=== PATIENT | male | born 1985 | race Caucasian/White ===

== ENCOUNTER 2016-12-24 15:36 | Observation (INO) | payer SELFPAY ==
--- NOTE | 2016-12-24 16:20 | ER Document Report ---
ED General - General Chief Complaint: Abscess Stated Complaint: POSSIBLE ABSCESS Time Seen by Provider: 12/24/16 16:13 Mode of Arrival: Ambulatory Information source: Patient Notes: 31-year-old male presents with intermittent swelling tenderness in between his scrotum and his rectum. Patient notes symptoms occur intermittently over the past year. Patient denies any fevers or chills nausea vomiting or diarrhea. TRAVEL OUTSIDE OF THE [place] IN LAST 30 DAYS: No - HPI Onset: Other Onset/Duration: Intermittent Quality of pain: Achy Severity: Mild Pain Level: 1 Associated symptoms: None Exacerbated by: Denies Relieved by: Denies Similar symptoms previously: Yes Recently seen / treated by doctor: No - Related Data Allergies/Adverse Reactions: No Known Allergies Allergy (Verified 12/24/16 15:45) Past Medical History - Social History Smoking Status: Never Smoker Cigarette use (# per day): No Chew tobacco use (# tins/day): No Smoking Education Provided: No Family History: Reviewed & Not Pertinent Renal/ Medical History: Denies: Hx Peritoneal Dialysis - Immunizations Hx Diphtheria, Pertussis, Tetanus Vaccination: Yes Review of Systems - Review of Systems Notes: REVIEW OF SYSTEMS: CONSTITUTIONAL : Denies fever, chills, or sweats. Denies recent illness. EENT: Denies eye, ear, throat, or mouth pain or symptoms. Denies nasal or sinus congestion or discharge. Denies throat, tongue, or mouth swelling or difficulty swallowing. CARDIOVASCULAR: Denies chest pain. Denies palpitations or racing or irregular heart beat. Denies ankle edema. RESPIRATORY: Denies cough, cold, or chest congestion. Denies shortness of breath, difficulty breathing, or wheezing. GASTROINTESTINAL: Denies abdominal pain or distention. Denies nausea, vomiting , or diarrhea. Denies blood in vomitus, stools, or per rectum. Denies black, tarry stools. Denies constipation. GENITOURINARY: Denies difficulty urinating, painful urination, burning, frequency, blood in urine, or discharge. MUSCULOSKELETAL: Denies back or neck pain or stiffness. Denies joint pain or swelling. SKIN: Tenderness HEMATOLOGIC : Denies easy bruising or bleeding. LYMPHATIC: Denies swollen, enlarged glands. NEUROLOGICAL: Denies confusion or altered mental status. Denies passing out or loss of consciousness. Denies dizziness or lightheadedness. Denies headache. Denies weakness or paralysis or loss of use of either side. Denies problems with gait or speech. Denies sensory loss, numbness, or tingling. Denies seizures. PSYCHIATRIC: Denies anxiety or stress. Denies depression, suicidal ideation, or homicidal ideation. ALL OTHER SYSTEMS REVIEWED AND NEGATIVE. Dictation was performed using [employer] voice recognition software PHYSICAL EXAMINATION: GENERAL: Well-appearing, well-nourished and in no acute distress. HEAD: Atraumatic, normocephalic. EYES: Pupils equal round and reactive to light, extraocular movements intact, sclera anicteric, conjunctiva are normal. ENT: Nares patent, oropharynx clear without exudates. Moist mucous membranes. NECK: Normal range of motion, supple without lymphadenopathy LUNGS: Breath sounds clear to auscultation bilaterally and equal. No wheezes rales or rhonchi. HEART: Regular rate and rhythm without murmurs ABDOMEN: Soft, nontender, nondistended abdomen. No guarding, no rebound. No masses appreciated. Musculoskeletal: Normal range of motion, no pitting or edema. No cyanosis. NEUROLOGICAL: Cranial nerves grossly intact. Normal speech, normal gait. Normal sensory, motor exams PSYCH: Normal mood, normal affect. SKIN: mild tenderness between the rectum and scrotum Physical Exam - Vital signs Vitals: Temp Pulse Resp BP Pulse Ox 98.6 F 92 20 159/80 H 97 12/24/16 15:44 12/24/16 15:44 12/24/16 15:44 12/24/16 15:44 12/24/16 15:44 Course - Re-evaluation Re-evalutation: 12/24/16 17:09 perirectal abscess noted on ct, dr michelle rowland for consult - Vital Signs Vital signs: Temp Pulse Resp BP Pulse Ox 98.6 F 92 20 159/80 H 97 12/24/16 15:44 12/24/16 15:44 12/24/16 15:44 12/24/16 15:44 12/24/16 15:44 Discharge - Discharge Clinical Impression: Perianal abscess Condition: Stable Disposition: ADMITTED OBSERVATION Admitting Provider: Surgicalist Unit Admitted: Surgical Floor
--- NOTE | 2016-12-24 16:56 | RADIOLOGY REPORT (SQ) ---
EXAM DESCRIPTION: CT ABD/PELVIS WITH IV ONLY COMPLETED DATE/TIME: 12/24/2016 4:45 pm REASON FOR STUDY: perianal tendernesws COMPARISON: None. TECHNIQUE: CT scan of the abdomen and pelvis performed using helical scanning technique with dynamic intravenous contrast injection. No oral contrast. Images reviewed with lung, soft tissue, and bone windows. Reconstructed coronal and sagittal MPR images reviewed. Delayed images for evaluation of the urinary system also acquired. All images stored on PACS. All CT scanners at this facility use dose modulation, iterative reconstruction, and/or weight based d osing when appropriate to reduce radiation dose to as low as reasonably achievable (ALARA). [facility]: Dose Right [facility]: CareDose [facility]: Dose Right [facility]: Teradose 4D [facility]: [employer] CONTRAST TYPE AND DOSE: contrast/concentration: Isovue 370.00 mg/ml; Total Contrast Delivered: 97.0 ml; Total Saline Delivered: 55.0 ml RENAL FUNCTION: None required. The patient is less than 50 years old. RADIATION DOSE: Up-to-date CT equipment and radiation dose reduction techniques were employed. CTDIv ol: NaN - NaN mGy. DLP: 0 mGy-cm.. LIMITATIONS: None. FINDINGS: LOWER CHEST: No significant findings. No nodules or infiltrates. LIVER: Normal size. No masses. No dilated ducts. SPLEEN: Normal size. No focal lesions. PANCREAS: No masses. No significant calcifications. No adjacent inflammation or peripancreatic fluid collections. Pancreatic duct not dilated. GALLBLADDER: No identified stones by CT criteria. No inflammatory changes to suggest cholecystitis. ADRENAL GLANDS: No significant masses or asymmetry. RIGHT KIDNEY AND URETER: No solid masses. No significant calcification. No hydronephrosis or hydroure ter. LEFT KIDNEY AND URETER: No solid masses. No significant calcification. No hydronephrosis or hydrouret er. AORTA AND VESSELS: No aneurysm. No dissection. Renal arteries, SMA, celiac without stenosis. RETROPERITONEUM: No retroperitoneal adenopathy, hemorrhage or masses. BOWEL AND PERITONEAL CAVITY: No masses or inflammatory changes. No free fluid or peritoneal masses. APPENDIX: Normal. PELVIS: No intrapelvic mass or fluid. Normal bladder. Close to the anterior anus tracking anteriorl y and to the right of midline is some low density in the perineum which measures up to 3.2 x 2.5 cm. Potential fistula or developing abscess. Please refer to mackenzie images. See image 97 specifically. ABDOMINAL WALL: No masses. No hernias. BONES: No significant or acute findings. OTHER: No other significant finding. IMPRESSION: 1. Low density in the perineum as above. This could represent a perianal abscess. Plea se see PACS mackenzie images as outlined above. TECHNICAL DOCUMENTATION: JOB ID: [id number] Quality ID # [id number]: Final reports with documentation of one or more dose reduction techniques (e.g., Au tomated exposure control, adjustment of the mA and/or kV according to patient size, use of iterative reconstruction technique) 2010 [employer]- All Rights Reserved
[2016-12-24 17:36] LABS: ABSOLUTE BASOPHILS # (AUTO) 0.1 10^3/uL (0.0-0.2); ABSOLUTE EOSINOPHILS # (AUTO) 0.2 10^3/uL (0.0-0.6); ABSOLUTE LYMPHOCYTES (AUTO) 2.6 10^3/uL (0.5-4.7); ABSOLUTE MONOCYTES (AUTO) 0.9 10^3/uL (0.1-1.4); ABSOLUTE NEUT (AUTO) 7.8 10^3/uL (1.7-8.2); BASOPHILS % (AUTO) 0.5 % (0-2); EOSINOPHILS % (AUTO) 1.9 % (0-6); HEMATOCRIT 42.2 % (37.9-51.0); HEMOGLOBIN 15.2 g/dL (13.5-17.0); HGB HCT DIFFERENCE 3.4; LYMPHOCYTES % (AUTO) 22.5 % (13-45); MEAN CORPUSCULAR HEMOGLOBIN 31.2 pg (27.0-33.4); MEAN CORPUSCULAR HGB CONC 35.9 g/dL (32.0-36.0); MEAN CORPUSCULAR VOLUME 87 fl (80-97); RED BLOOD COUNT 4.86 10^6/uL (4.35-5.55); RED CELL DISTRIBUTION WIDTH 12.7 % (11.5-14.0); SEGMENTED NEUTROPHILS % (AUTO) 67.1 % (42-78); WHITE BLOOD COUNT 11.7 10^3/uL (4.0-10.5)
[2016-12-24] MEDS ORDERED: CLINDAMYCIN PHOSPHATE INJ 300 MG/2 ML SDV IV ONE (17:45)
[2016-12-24 17:46] LABS: ALANINE AMINOTRANSFERASE 45 U/L (21-72); ALBUMIN 4.7 g/dL (3.5-5.0); ALKALINE PHOSPHATASE 76 U/L (38-126); ANION GAP 12 (5-19); ASPARTATE AMINO TRANSFERASE 29 U/L (17-59); BILIRUBIN,DIRECT 0.4 mg/dL (0.0-0.4); BILIRUBIN,TOTAL 0.5 mg/dL (0.2-1.3); BLOOD UREA NITROGEN 12 mg/dL (7-20); CALCIUM 9.4 mg/dL (8.4-10.2); CARBON DIOXIDE 26 mmol/L (22-30); CHLORIDE 103 mmol/L (98-107); CREATININE RESULT 0.98 mg/dL (0.52-1.25); GLUCOSE 86 mg/dL (75-110); POTASSIUM 3.8 mmol/L (3.6-5.0); SODIUM 141.3 mmol/L (137-145); TOTAL PROTEIN 7.3 g/dL (6.3-8.2)
[2016-12-24] MEDS ORDERED: MORPHINE SULFATE 10 MG/ML INJ IV ONE (17:49)
[2016-12-24] MEDS ORDERED: NORMAL SALINE 1000 ML 1,000 ML IV ONE (17:49)
[2016-12-24] MEDS ORDERED: ONDANSETRON HCL INJ/PF 4 MG/2 ML SDV IV PRN (17:54)
[2016-12-24] MEDS ORDERED: MORPHINE SULFATE 10 MG/ML INJ IV PRN (17:54)
[2016-12-24 18:14] LABS: VENOUS BLOOD HCO3 25.3 mmol/L (20-32); VENOUS BLOOD PCO2 43.1 mmHg (35-63); VENOUS BLOOD PH 7.39 (7.30-7.42)
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
[2016-12-24] MEDS: METRONIDAZOLE 500 MG/NS RTU 100 ML IV SCH (20:21)
[2016-12-24] MEDS: NORMAL SALINE 1000 ML 1,000 ML IV PRN (20:22)
[2016-12-24] MEDS: KETOROLAC TROMETHAMINE INJ/PF 30 MG/1 ML SDV IV PRN (22:09)
[2016-12-25] MEDS: METRONIDAZOLE 500 MG/NS RTU 100 ML IV SCH ×2 (02:42→09:46)
[2016-12-25] MEDS: NORMAL SALINE 1000 ML 1,000 ML IV PRN ×2 (06:54→11:40)
[2016-12-25] MEDS ORDERED: BUPIVACAINE HCL 0.25 % INJ/PF (2.5 MG/1 ML) 30 ML VIAL ONE (07:40)
[2016-12-25] MEDS ORDERED: FENTANYL CITRATE INJ/PF 100 MCG/2 ML AMPUL ONE (07:54)
[2016-12-25] MEDS ORDERED: KETOROLAC TROMETHAMINE 60 MG/2 ML SDV ONE (07:54)
[2016-12-25] MEDS ORDERED: PROPOFOL INJ 200 MG/20 ML VIAL IV ONE (07:55)
[2016-12-25] MEDS ORDERED: HYDROMORPHONE HCL INJ/PF 2 MG/ML AMPULE ONE (07:55)
[2016-12-25] MEDS ORDERED: MIDAZOLAM 2 MG/2 ML INJ ONE (07:55)
[2016-12-25] MEDS ORDERED: ONDANSETRON HCL INJ/PF 4 MG/2 ML SDV ONE (07:55)
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
[2016-12-25] MEDS ORDERED: DIPHENHYDRAMINE HCL 50 MG/ML VIAL IV PRN (09:00)
[2016-12-25] MEDS ORDERED: PROMETHAZINE HCL INJ 25 MG/1 ML VIAL IV PRN (09:00)
[2016-12-25] MEDS ORDERED: FENTANYL CITRATE INJ/PF 100 MCG/2 ML AMPUL IV PRN ×3 (09:00)
[2016-12-25] MEDS ORDERED: MEPERIDINE HCL/PF INJ 25 MG/1 ML DISP.SYRIN IV PRN (09:00)
[2016-12-25] MEDS ORDERED: SUCCINYLCHOLINE CHLORIDE INJ 200 MG/10 ML VIAL ONE (09:02)
[2016-12-25] MEDS ORDERED: DOCUSATE SODIUM 100 MG CAPSULE PO SCH (10:00)
[2016-12-25] MEDS: KETOROLAC TROMETHAMINE INJ/PF 30 MG/1 ML SDV IV PRN (11:43)
[2016-12-25 15:33] VITALS: BP 129/66
--- NOTE | 2016-12-27 08:07 | DISCHARGE SUMMARY E ---
Discharge Summary NAME: LOGAN TREVINO : 1985 AGE: 31Y ADMITTED: 12/24/2016 DISCHARGED: 12/25/2016 CHIEF COMPLAINT: Perineal abscess. SUMMARY OF HOSPITALIZATION: The patient is a 31-year-old white male who presents to the emergency department complaining of a several day history of periodic rectal bleeding and pain in his perineum. He was found on physical examination and confirmed by ultrasonography to have inflammatory changes just anterior to his anus. He was admitted to the surgicalist service, kept n.p.o. overnight, and taken to the operating room the following morning where he underwent exam under anesthesia, drainage of perineal abscess with tacking. Intraoperative findings were significant only for fluid-filled pocket in the perineum. Patient was discharged home the following day. FINAL DIAGNOSIS: Perineal abscess status post drainage. DISPOSITION: The patient will be discharged home to the care of his family, remove packing 24 hours, given a prescription of pain medication, Percocet, instruction to follow up with [facility] in approximately 1 week. DICTATING PHYSICIAN: KAITLYNN GAN M.D. [id number] PHY#: [id number] ID: [id number] JOB#: [id number] ACCT: [id number] cc:Jules MARCIAL MD, M.D. [facility],
== END 2016-12-25 15:10 | disposition home or self-care (01) ==
LOC: ER 15:36 → EH 17:50 → UNDOADMOB 17:50 → EH 17:53 → 4S 21:15
PROVIDERS: ATTEND Surgery
PROC: 0J9B0ZZ Drainage of Perineum Subcutaneous Tissue and Fascia, Open Approach (ICD-10-PCS; principal; 2016-12-25 08:00)
DX: L02.215 Cutaneous abscess of perineum (principal); K64.8 Other hemorrhoids; K64.4 Residual hemorrhoidal skin tags; K62.5 Hemorrhage of anus and rectum; F17.200 Nicotine dependence, unspecified, uncomplicated
CPT/HCPCS: 99285; 96375; 96365; 96368; 36415; 87040; 87070; 87205; 85025; 87075; 87077; 80053; 87186; 82803; 74177; 10060; G0378 ×3; J2250; J1885 ×3; J3010; J2270 ×2; J1170; J0330; J2405; J7030 ×2; J2704; 902

== ENCOUNTER 2017-01-26 11:22 | Observation (INO) | payer SELFPAY ==
[2017-01-26 13:01] LABS: ABSOLUTE EOSINOPHILS # (AUTO) 0.2 10^3/uL (0.0-0.6); ABSOLUTE LYMPHOCYTES (AUTO) 1.9 10^3/uL (0.5-4.7); ABSOLUTE NEUT (AUTO) 8.7 10^3/uL (1.7-8.2); BASOPHILS % (AUTO) 0.2 % (0-2); EOSINOPHILS % (AUTO) 1.8 % (0-6); HEMATOCRIT 40.4 % (37.9-51.0); HEMOGLOBIN 14.2 g/dL (13.5-17.0); HGB HCT DIFFERENCE 2.2; LYMPHOCYTES % (AUTO) 16.4 % (13-45); MEAN CORPUSCULAR HEMOGLOBIN 30.9 pg (27.0-33.4); MEAN CORPUSCULAR HGB CONC 35.2 g/dL (32.0-36.0); MEAN CORPUSCULAR VOLUME 88 fl (80-97); MONOCYTES % (AUTO) 8.6 % (3-13); RED BLOOD COUNT 4.61 10^6/uL (4.35-5.55); RED CELL DISTRIBUTION WIDTH 12.9 % (11.5-14.0); WHITE BLOOD COUNT 11.9 10^3/uL (4.0-10.5)
[2017-01-26] MEDS ORDERED: CLINDAMYCIN 300 MG/D5W RTU 300 MG/50 ML RTUPB IV ONE (13:30)
[2017-01-26] MEDS ORDERED: MORPHINE SULFATE 10 MG/ML INJ IV ONE (13:30)
[2017-01-26 13:35] LABS: ALANINE AMINOTRANSFERASE 29 U/L (21-72); ALBUMIN 3.9 g/dL (3.5-5.0); ALKALINE PHOSPHATASE 67 U/L (38-126); ANION GAP 6 (5-19); ASPARTATE AMINO TRANSFERASE 22 U/L (17-59); BILIRUBIN,DIRECT 0.3 mg/dL (0.0-0.4); BILIRUBIN,TOTAL 0.7 mg/dL (0.2-1.3); BLOOD UREA NITROGEN 11 mg/dL (7-20); CALCIUM 9.2 mg/dL (8.4-10.2); CARBON DIOXIDE 28 mmol/L (22-30); CHLORIDE 106 mmol/L (98-107); CREATININE RESULT 0.88 mg/dL (0.52-1.25); GLUCOSE 90 mg/dL (75-110); POTASSIUM 3.8 mmol/L (3.6-5.0); SODIUM 139.7 mmol/L (137-145); TOTAL PROTEIN 6.2 g/dL (6.3-8.2)
--- NOTE | 2017-01-26 14:03 | RADIOLOGY REPORT (SQ) ---
EXAM DESCRIPTION: CT PELVIS WITH COMPLETED DATE/TIME: 01/26/2017 1:50 pm REASON FOR STUDY: perineal abscess COMPARISON: 12/24/2016. TECHNIQUE: CT scan of the pelvis performed with intravenous contrast. Images reviewed with soft tis amairani and bone windows. Reconstructed coronal and sagittal MPR images reviewed. All images stored on PACS. All CT scanners at this facility use dose modulation, iterative reconstruction, and/or weight based d osing when appropriate to reduce radiation dose to as low as reasonably achievable (ALARA). [facility]: Dose Right [facility]: CareDose [facility]: Dose Right [facility]: Teradose 4D [facility]: [employer] CONTRAST DOSE: 95 mL Isovue 370. RENAL FUNCTION: None required. Patient less than 50 years old. RADIATION DOSE: mGy. LIMITATIONS: None. FINDINGS: PELVIC BONES: No acute fracture. No worrisome bone lesions. VISUALIZED SPINE: No acute findings. HIP(S): No acute fracture or dislocation. No worrisome bone lesions. PELVIC SOFT TISSUES: No significant findings. EXTRAPELVIC SOFT TISSUES: Ill-defined low-attenuation fluid collection in the perineal soft tissues a nterior and to the right of the anus. Series 4, image 46. Similar appearance but slightly smaller, currently measuring 1.9 x 2.2 cm with prior measurements of 2.5 x 3.2 cm. OTHER: No other significant finding. IMPRESSION: SMALL PERINEAL ABSCESS DESCRIBED WHICH IS SLIGHTLY SMALLER COMPARED TO THE PRIOR STUD Y. NO OTHER SIGNIFICANT FINDINGS. TECHNICAL DOCUMENTATION: JOB ID: [id number] Quality ID # [id number]: Final reports with documentation of one or more dose reduction techniques (e.g., Au tomated exposure control, adjustment of the mA and/or kV according to patient size, use of iterative reconstruction technique) 2010 [employer]- All Rights Reserved
--- NOTE | 2017-01-26 15:06 | PDOC H&P ---
History of Present Illness Patient complains of: Perineal pain History of Present Illness: LOGAN TREVINO is a 31 year old male with a perineal abscess that was incised and drained about a month ago. The process resolved but however in the last several days he has had recurrence of the perineal swelling with redness and pain. no fever. No drainage. Patient has no other medical problems. No diabetes. Past Medical History Cardiac Medical History: Reports: None Denies: Congestive Heart Failure, Myocardial Infarction, Hypertension Pulmonary Medical History: Reports: None Denies: Asthma, Bronchitis, Chronic Obstructive Pulmonary Disease (COPD), Pneumonia, Tuberculosis Neurological Medical History: Denies: Seizures Endocrine Medical History: Reports: None Renal/ Medical History: Denies: End Stage Renal Disease GI Medical History: Denies: Cirrhosis, Gastroesophageal Reflux Disease Musculoskeltal Medical History: Denies: Arthritis Psychiatric Medical History: Denies: Bipolar Disorder, Depression Hematology: Denies: Anemia, Bleeding Tendencies Past Surgical History Past Surgical History: Reports: Other - Perineal abscess incision and drainage about a month ago. Social History Smoking Status: Current Every Day Smoker Frequency of Alcohol Use: Rare Drugs: None Family History Family History: Reviewed & Not Pertinent Parental Family History Reviewed: No Children Family History Reviewed: No Sibling(s) Family History Reviewed.: No Medication/Allergy Home Medications: No Home Medications 01/26/17 Allergies/Adverse Reactions: No Known Allergies Allergy (Verified 01/26/17 11:26) Physical Exam Vital Signs: Temp Pulse Resp BP Pulse Ox 98.5 F 91 16 147/73 H 99 01/26/17 11:26 01/26/17 11:26 01/26/17 11:26 01/26/17 11:26 01/26/17 11:26 Intake & Output 01/25/17 01/26/17 01/27/17 06:59 06:59 06:59 Weight 88.2 kg General appearance: PRESENT: no acute distress, cooperative Eye exam: PRESENT: conjunctiva pink Neck exam: PRESENT: other - Supple with no masses Respiratory exam: PRESENT: clear to auscultation wilbert Cardiovascular exam: PRESENT: RRR GI/Abdominal exam: PRESENT: other - Soft nondistended nontender to palpate Rectal exam: PRESENT: other - At the perineal region several centimeters away from the perianal region there is a wide area of erythema with tenderness and induration. Due to the amount of induration I am unable to determine whether he has fluctuance in this area. No abnormality seen in the perianal region. Extremities exam: PRESENT: other - No swelling Skin exam: PRESENT: warm Results Laboratory Results: 01/26/17 12:38 01/26/17 12:38 01/26/17 01/26/17 12:38 12:38 WBC 11.9 H RBC 4.61 Hgb 14.2 Hct 40.4 MCV 88 MCH 30.9 MCHC 35.2 RDW 12.9 Plt Count 174 Seg Neutrophils % 73.0 Lymphocytes % 16.4 Monocytes % 8.6 Eosinophils % 1.8 Basophils % 0.2 Absolute Neutrophils 8.7 H Absolute Lymphocytes 1.9 Absolute Monocytes 1.0 Absolute Eosinophils 0.2 Absolute Basophils 0.0 Sodium 139.7 Potassium 3.8 Chloride 106 Carbon Dioxide 28 Anion Gap 6 BUN 11 Creatinine 0.88 Est GFR ( Amer) > 60 Est GFR (Non-Af Amer) > 60 Glucose 90 Calcium 9.2 Total Bilirubin 0.7 AST 22 ALT 29 Alkaline Phosphatase 67 Total Protein 6.2 L Albumin 3.9 Impressions: Pelvis CT 01/26/17 12:20 IMPRESSION: SMALL PERINEAL ABSCESS DESCRIBED WHICH IS SLIGHTLY SMALLER COMPARED TO THE PRIOR STUDY. NO OTHER SIGNIFICANT FINDINGS. Assessment & Plan - Diagnosis (1) Perineal abscess Is this a current diagnosis for this admission?: Yes Plan: Recurrent. CT scan demonstrates a abscess although I cannot feel a direct region of fluctuance. I will plan incision and drainage with a curetting of the abscess cavity. I have discussed with the patient the nature of the surgery and risks and benefits including risk of recurrence, bleeding, adjacent structure injury, prolonged wound healing and mistaken diagnosis as well. Patient understands and agrees to proceed.
--- NOTE | 2017-01-26 15:24 | ER Document Report ---
ED General - General Chief Complaint: Abscess Stated Complaint: GROIN PAIN Time Seen by Provider: 01/26/17 11:52 Mode of Arrival: Ambulatory Information source: Patient Notes: 31-year-old male who had a perineal abscess which was incised and drained approximately 1 month ago presents with complaints that symptoms have been worsening patient denies any fevers or chills denies any nausea vomiting that symptoms initially improved but then worsened and this tender area TRAVEL OUTSIDE OF THE [place] IN LAST 30 DAYS: No - HPI Onset: Other Onset/Duration: Persistent, Worse Quality of pain: Achy Severity: Mild Pain Level: 1 Associated symptoms: Other Exacerbated by: Denies Relieved by: Denies Similar symptoms previously: Yes Recently seen / treated by doctor: Yes - Related Data Allergies/Adverse Reactions: No Known Allergies Allergy (Verified 01/26/17 11:26) Home Medications: Current Home Medications No Home Medications 01/26/17 [History] Past Medical History - Social History Smoking Status: Current Every Day Smoker Cigarette use (# per day): Yes Chew tobacco use (# tins/day): No Smoking Education Provided: No Frequency of alcohol use: None Drug Abuse: None Family History: Reviewed & Not Pertinent - Past Medical History Cardiac Medical History: Reports: None Denies: Hx Congestive Heart Failure, Hx Heart Attack, Hx Hypertension Pulmonary Medical History: Reports: None Denies: Hx Asthma, Hx Bronchitis, Hx COPD, Hx Pneumonia, Hx Tuberculosis Neurological Medical History: Denies: Hx Seizures Endocrine Medical History: Reports: None Renal/ Medical History: Denies: Hx Benign Prostatic Hyperplasia, Hx End Stage Renal Disease, Hx Kidney Stones, Hx Peritoneal Dialysis GI Medical History: Denies: Hx Cirrhosis, Hx Gastroesophageal Reflux Disease, Hx Ulcer Musculoskeltal Medical History: Denies Hx Arthritis, Denies Hx Multiple Sclerosis Psychiatric Medical History: Denies: Hx Bipolar Disorder, Hx Depression, Hx Schizophrenia Surgical Hx: Negative Past Surgical History: Reports: Other - Perineal abscess incision and drainage about a month ago. - Immunizations Hx Diphtheria, Pertussis, Tetanus Vaccination: Yes Review of Systems - Review of Systems Notes: REVIEW OF SYSTEMS: CONSTITUTIONAL : Denies fever, chills, or sweats. Denies recent illness. EENT: Denies eye, ear, throat, or mouth pain or symptoms. Denies nasal or sinus congestion or discharge. Denies throat, tongue, or mouth swelling or difficulty swallowing. CARDIOVASCULAR: Denies chest pain. Denies palpitations or racing or irregular heart beat. Denies ankle edema. RESPIRATORY: Denies cough, cold, or chest congestion. Denies shortness of breath, difficulty breathing, or wheezing. GASTROINTESTINAL: Denies abdominal pain or distention. Denies nausea, vomiting , or diarrhea. Denies blood in vomitus, stools, or per rectum. Denies black, tarry stools. Denies constipation. GENITOURINARY: Denies difficulty urinating, painful urination, burning, frequency, blood in urine, or discharge. MUSCULOSKELETAL: Denies back or neck pain or stiffness. Denies joint pain or swelling. SKIN: Tenderness just posterior to the scrotum HEMATOLOGIC : Denies easy bruising or bleeding. LYMPHATIC: Denies swollen, enlarged glands. NEUROLOGICAL: Denies confusion or altered mental status. Denies passing out or loss of consciousness. Denies dizziness or lightheadedness. Denies headache. Denies weakness or paralysis or loss of use of either side. Denies problems with gait or speech. Denies sensory loss, numbness, or tingling. Denies seizures. PSYCHIATRIC: Denies anxiety or stress. Denies depression, suicidal ideation, or homicidal ideation. ALL OTHER SYSTEMS REVIEWED AND NEGATIVE. Dictation was performed using [employer] voice recognition software PHYSICAL EXAMINATION: GENERAL: Well-appearing, well-nourished and in no acute distress. HEAD: Atraumatic, normocephalic. EYES: Pupils equal round and reactive to light, extraocular movements intact, sclera anicteric, conjunctiva are normal. ENT: Nares patent, oropharynx clear without exudates. Moist mucous membranes. NECK: Normal range of motion, supple without lymphadenopathy LUNGS: Breath sounds clear to auscultation bilaterally and equal. No wheezes rales or rhonchi. HEART: Regular rate and rhythm without murmurs ABDOMEN: Soft, nontender, nondistended abdomen. No guarding, no rebound. No masses appreciated. Musculoskeletal: Normal range of motion, no pitting or edema. No cyanosis. NEUROLOGICAL: Cranial nerves grossly intact. Normal speech, normal gait. Normal sensory, motor exams PSYCH: Normal mood, normal affect. SKIN: Induration in perineal region Physical Exam - Vital signs Vitals: Temp Pulse Resp BP Pulse Ox 98.5 F 91 16 147/73 H 99 01/26/17 11:26 01/26/17 11:26 01/26/17 11:26 01/26/17 11:26 01/26/17 11:26 Course - Re-evaluation Re-evalutation: 01/26/17 15:23 Patient will be admitted to the surgeon for incision and drainage IV antibiotics have been started CT was consistent with a perineal abscess - Vital Signs Vital signs: Temp Pulse Resp BP Pulse Ox 98.5 F 91 16 147/73 H 99 01/26/17 11:26 01/26/17 11:26 01/26/17 11:26 01/26/17 11:26 01/26/17 11:26 - Laboratory Result Diagrams: 01/26/17 12:38 01/26/17 12:38 Laboratory results interpreted by me: 01/26/17 01/26/17 12:38 12:38 WBC 11.9 H Absolute Neutrophils 8.7 H Total Protein 6.2 L - Diagnostic Test Radiology reviewed: Image reviewed, Reports reviewed - Perineal abscess Discharge - Discharge Clinical Impression: Perineal abscess Condition: Stable Disposition: ADMITTED INPATIENT Admitting Provider: Surgicalist Unit Admitted: Surgical Floor
[2017-01-26] MEDS ORDERED: CEFAZOLIN 1 GM/D5W RTU 1 GM/50 ML RTUPB IV SCH ×2 (15:30→21:00)
[2017-01-26] MEDS: NORMAL SALINE 1000 ML 1,000 ML IV PRN ×2 (16:06→21:06)
[2017-01-26] MEDS ORDERED: MIDAZOLAM 2 MG/2 ML INJ ONE (17:09)
[2017-01-26] MEDS ORDERED: HYDROMORPHONE HCL INJ/PF 2 MG/ML AMPULE ONE (17:09)
[2017-01-26] MEDS ORDERED: PROPOFOL INJ 200 MG/20 ML VIAL IV ONE (17:09)
[2017-01-26] MEDS ORDERED: FENTANYL CITRATE INJ/PF 100 MCG/2 ML AMPUL ONE (17:09)
[2017-01-26] MEDS ORDERED: BUPIVACAINE HCL 0.25 % INJ/PF (2.5 MG/1 ML) 30 ML VIAL ONE (17:54)
--- NOTE | 2017-01-26 19:13 | Operative Report ---
Operative Report DATE OF SURGERY: 01/26/17 PREOPERATIVE DIAGNOSIS: Perineal abscess POSTOPERATIVE DIAGNOSIS: Perineal abscess OPERATION: Perineal abscess debridement SURGEON: MATILDE DE JESUS ANESTHESIA: GA TISSUE REMOVED OR ALTERED: Pus sent for Gram stain and culture ESTIMATED BLOOD LOSS: 20 cc INTRAOPERATIVE FINDINGS: Approximately 3 x 3 cm abscess cavity in the midline perineum about 4 cm anterior to the anal canal PROCEDURE: Consent was obtained. Patient was brought to the operating room and placed on the operating table in the supine position. After satisfactory induction of general anesthesia patient's was placed in a lithotomy position and his perineum was prepped and draped in usual sterile fashion. Using an 18-gauge needle abscess cavity was identified yielding pus. The abscess cavity appeared to be located at the midline of the perineum about 4 cm anterior to the anal canal. An incision just left of midline was made in the perineum entering an approximately 3 x 3 abscess cavity that appeared to be lined with glistening epithelium. Palpation revealed no other tracking tunnels. There was no induration posteriorly going toward the anus. The perianal region felt soft and supple. The lining of the abscess cavity was curetted. Hemostasis was achieved with electrocautery. The wound was then packed with gauze. Local anesthetic was injected. Patient tolerated procedure well with no apparent complications and was taken to the recovery area in stable condition.
[2017-01-26] MEDS ORDERED: OXYCODONE-ACETAMINOPHEN 5-325 MG TABLET PO PRN (19:14)
[2017-01-26] MEDS: FENTANYL CITRATE INJ/PF 100 MCG/2 ML AMPUL ONE ×2 (19:15→19:20)
[2017-01-26] MEDS: CEFAZOLIN 1 GM/D5W RTU 1 GM/50 ML RTUPB IV SCH (21:02)
[2017-01-26] MEDS: MORPHINE SULFATE 10 MG/ML INJ IV PRN (21:21)
[2017-01-27] MEDS: MORPHINE SULFATE 10 MG/ML INJ IV PRN ×2 (01:18→09:22)
[2017-01-27] MEDS: CEFAZOLIN 1 GM/D5W RTU 1 GM/50 ML RTUPB IV SCH ×2 (02:56→09:28)
[2017-01-27 10:41] VITALS: BP 102/47
--- NOTE | 2017-01-27 11:13 | DISCHARGE SUMMARY E ---
Discharge Summary NAME: LOGAN TREVINO : 1985 AGE: 31Y ADMITTED: 01/26/2017 DISCHARGED: 01/27/2017 HOSPITAL COURSE: The patient was admitted on 01/26/2017 for recurrent perineal abscess. This abscess was drained about a month ago and has resolved, but had recurrence over the past few days. She has swelling and redness and pain. This was then drained by Dr. Bautista on 01/26/2017 and was packed. The next, 01/27, the packing was removed and Iodoform packing placed. He will be discharged today on p.o. Cipro 500 mg p.o. b.i.d. for the next week. He will also be seen at the surgical clinic in about a week. A prescription for Percocet was also given. DICTATING PHYSICIAN: FORREST GREENE M.D. [id number] PHY#: [id number] ID: [id number] JOB#: [id number] ACCT: [id number] cc:Jules MARCIAL MD, M.D. [facility],
== END 2017-01-27 11:00 | disposition home or self-care (01) ==
LOC: ER 11:22 → EH 15:37 → INTOOBSV 15:37 → 5 17:55
PROVIDERS: ATTEND Surgery
PROC: 0JBB0ZZ Excision of Perineum Subcutaneous Tissue and Fascia, Open Approach (ICD-10-PCS; 2017-01-26)
PROC: 0J9B0ZZ Drainage of Perineum Subcutaneous Tissue and Fascia, Open Approach (ICD-10-PCS; principal; 2017-01-26 18:45)
DX: L02.215 Cutaneous abscess of perineum (principal); F17.210 Nicotine dependence, cigarettes, uncomplicated; Z98.890 Other specified postprocedural states
CPT/HCPCS: 10060; 99285; 96375; 96365; 36415; 87040; 87070; 87205; 85025; 87075; 87077; 80053; 87186; 72193; 17999; G0378 ×3; J2250; J3490 ×2; J0690 ×2; J3010; J2270 ×2; J1170; J7030; J2704; 400

== ENCOUNTER 2017-09-27 17:14 | Emergency (ER) | payer MEDICAID ==
--- NOTE | 2017-09-27 18:53 | ER Document Report ---
HPI - HPI Patient complains to provider of: Tailbone pain Pain Level: 4 Context: Patient is a healthy 32-year-old male complaining of sacral pain. Patient fell down some steps 2 days ago landing directly on his tailbone. Patient has been having localized pain since then. Denies any paresthesias or radiculopathy. Pain with movement but is able to walk independently. No bowel or bladder change Associated Symptoms: None Exacerbated by: Movement, Walking Relieved by: Denies Similar symptoms previously: No Recently seen / treated by doctor: No - ROS Systems Reviewed and Negative: Yes All other systems reviewed and negative - CONSTITUTIONAL Constitutional: DENIES: Fever, Chills - REPRODUCTIVE Reproductive: DENIES: : Past Medical History - General Information source: Patient - Social History Smoking Status: Current Every Day Smoker Frequency of alcohol use: Occasional Drug Abuse: None Lives with: Family Family History: Reviewed & Not Pertinent Patient has suicidal ideation: No Patient has homicidal ideation: No - Past Medical History Cardiac Medical History: Denies: Hx Congestive Heart Failure, Hx Heart Attack, Hx Hypertension Pulmonary Medical History: Denies: Hx Asthma, Hx Bronchitis, Hx COPD, Hx Pneumonia, Hx Tuberculosis Neurological Medical History: Denies: Hx Seizures Renal/ Medical History: Denies: Hx Benign Prostatic Hyperplasia, Hx End Stage Renal Disease, Hx Kidney Stones, Hx Peritoneal Dialysis GI Medical History: Denies: Hx Cirrhosis, Hx Gastroesophageal Reflux Disease, Hx Ulcer Musculoskeltal Medical History: Denies Hx Arthritis, Denies Hx Multiple Sclerosis Psychiatric Medical History: Denies: Hx Bipolar Disorder, Hx Depression, Hx Schizophrenia Past Surgical History: Reports: Other - Perineal abscess incision and drainage about a month ago. - Immunizations Hx Diphtheria, Pertussis, Tetanus Vaccination: Yes Vertical Provider Document - CONSTITUTIONAL Agree With Documented VS: Yes Exam Limitations: No Limitations - INFECTION CONTROL TRAVEL OUTSIDE OF THE [place] IN LAST 30 DAYS: No - HEENT HEENT: Atraumatic, PERRLA - NECK Neck: Normal Inspection, Supple - BACK Notes: Focal sacral tenderness. No edema or ecchymosis. - MUSCULOSKELETAL/EXTREMETIES Musculoskeletal/Extremeties: LIZETH CHRISTIANSON - NEURO Level of Consciousness: Awake, Alert, Appropriate Course - Re-evaluation Re-evalutation: 09/27/17 18:55 History and physical are consistent with an acute sacral contusion. No signs of spinal cord compression, cauda equina, infection, aneurysm or other serious etiology. Patient is neurologically intact, independently and steadily ambulatory without paresthesia or neurologic deficits. No radiology or further testing is indicated at this time. Home care, follow-up with primary care, ED return precautions discussed with patient. Patient is agreeable with plan and stable for discharge. Short course of pain medication is provided. - Vital Signs Vital signs: Temp Pulse Resp BP Pulse Ox 98.6 F 84 16 139/88 H 100 09/27/17 17:22 09/27/17 17:22 09/27/17 17:22 09/27/17 17:22 09/27/17 17:22 Discharge - Discharge Clinical Impression: Coccyx contusion Qualifiers: Encounter type: initial encounter Qualified Code(s): S30.0XXA - Contusion of lower back and pelvis, initial encounter Condition: Stable Disposition: HOME, SELF-CARE Instructions: Ice Packs ([facility]), Ibuprofen (General) ([facility]), Oral Narcotic Medication ([facility]) Additional Instructions: Take medications as prescribed Apply ice to sore area Recommend doughnut pillow for comfort Recommend stool softener to avoid constipation Follow-up with your primary care Prescriptions: Hydrocodone/Acetaminophen [Frannie 5-325 mg Tablet] 1 tab PO Q4H #10 tablet Ibuprofen [Motrin 800 Mg Tablet] 800 mg PO Q6H #20 tablet Forms: Return to Work
[2017-09-27] MEDS ORDERED: OXYCODONE-ACETAMINOPHEN 5-325 MG TABLET PO ONE (18:56)
[2017-09-27 19:11] VITALS: BP 141/96
== END 2017-09-27 19:11 | disposition home or self-care (01) ==
LOC: ER 17:14
DX: S30.0XXA Contusion of lower back and pelvis, initial encounter (principal); M53.3 Sacrococcygeal disorders, not elsewhere classified; W10.9XXA Fall (on) (from) unspecified stairs and steps, initial encounter; F17.200 Nicotine dependence, unspecified, uncomplicated
CPT/HCPCS: 99283

== ENCOUNTER 2018-01-29 14:29 | Emergency (ER) | payer MEDICAID ==
[2018-01-29] MEDS ORDERED: ONDANSETRON HCL INJ/PF 4 MG/2 ML SDV IV ONE (14:47)
[2018-01-29] MEDS ORDERED: MORPHINE SULFATE 10 MG/ML INJ IV ONE (14:47)
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
[2018-01-29] MEDS ORDERED: DIPH/PERTUSS(ACELL)/TETANUS VAC/PF 0.5 ML SYR (>=10YO) IM ONE (15:27)
[2018-01-29 15:28] VITALS: BP 146/94
[2018-01-29 15:32] LABS: ABSOLUTE EOSINOPHILS # (AUTO) 0.1 10^3/uL (0.0-0.6); ABSOLUTE LYMPHOCYTES (AUTO) 2.1 10^3/uL (0.5-4.7); ABSOLUTE MONOCYTES (AUTO) 0.8 10^3/uL (0.1-1.4); ABSOLUTE NEUT (AUTO) 6.9 10^3/uL (1.7-8.2); BASOPHILS % (AUTO) 0.4 % (0-2); EOSINOPHILS % (AUTO) 1.2 % (0-6); HEMATOCRIT 40.3 % (37.9-51.0); HEMOGLOBIN 14.5 g/dL (13.5-17.0); LYMPHOCYTES % (AUTO) 21.4 % (13-45); MEAN CORPUSCULAR HEMOGLOBIN 30.9 pg (27.0-33.4); MEAN CORPUSCULAR HGB CONC 35.9 g/dL (32.0-36.0); MEAN CORPUSCULAR VOLUME 86 fl (80-97); MONOCYTES % (AUTO) 7.7 % (3-13); PLATELET COUNT 219 10^3/uL (150-450); RED BLOOD COUNT 4.68 10^6/uL (4.35-5.55); RED CELL DISTRIBUTION WIDTH 12.9 % (11.5-14.0); SEGMENTED NEUTROPHILS % (AUTO) 69.3 % (42-78); TOTAL CELLS COUNTED % (AUTO) 100 %
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
[2018-01-29 15:57] LABS: ANION GAP 6 (5-19); BLOOD UREA NITROGEN 14 mg/dL (7-20); CALCIUM 9.9 mg/dL (8.4-10.2); CARBON DIOXIDE 31 mmol/L (22-30); CHLORIDE 103 mmol/L (98-107); GLUCOSE 109 mg/dL (75-110); POTASSIUM 3.7 mmol/L (3.6-5.0); SODIUM 140.3 mmol/L (137-145)
== END 2018-01-29 15:44 | disposition home or self-care (01) ==
LOC: ER 14:29
DX: T23.261A Burn of second degree of back of right hand, initial encounter (principal); T24.101A Burn of first degree of unspecified site of right lower limb, except ankle and foot, initial encounter; X08.8XXA Exposure to other specified smoke, fire and flames, initial encounter; Y93.89 Activity, other specified; F17.200 Nicotine dependence, unspecified, uncomplicated; Z23 Encounter for immunization
CPT/HCPCS: 99283; 90471; 96374; 96375; 36415; 85025; 80048; 90715; J2270; J2405